=== PATIENT | female | born 1995 | race Caucasian/White ===

== ENCOUNTER → 2019-05-18 | Outpatient (CLI) | payer OTHER ==
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
== END ==
LOC: RAD 11:33
PROVIDERS: ATTEND Family Medicine
DX: M79.641 Pain in right hand (principal)